=== PATIENT | male | born 1945 | race Caucasian/White ===

== ENCOUNTER 2022-06-19 10:03 | Emergency (ER) | payer MEDICARE ==
[2022-06-19 10:11] VITALS: BP 161/80; PULSE 57; RESP 20; TEMP 97.7
--- NOTE | 2022-06-19 10:36 | XR ---
EXAMINATION TYPE: XR knee complete RT DATE OF EXAM: 06/19/2022 COMPARISON: None HISTORY: Injury, pain, arthritis TECHNIQUE: 3 view right knee FINDINGS: There is narrowed medial compartment joint space. Mild narrowing of the lateral compartment joint space is present. No acute fractures or dislocations are evident. Small joint effusion may be present. Patellofemoral joint space and some narrowing.. Follow up exams can be performed 7-10 days acute trauma for continued pain. MRI could be utilized to evaluate soft tissues. IMPRESSION: 1. Mild osteoarthritic degenerative change right knee. 2. Suggestion of a small joint effusion.
--- NOTE | 2022-06-19 12:28 | US ---
EXAMINATION TYPE: US venous doppler duplex LE RT DATE OF EXAM: 06/19/2022 12:20 PM COMPARISON: NONE CLINICAL HISTORY: posterior knee pain, rule out DVT. "blew out" right knee last night while walking t he dog, no h/o dvt SIDE PERFORMED: Right TECHNIQUE: The lower extremity deep venous system is examined utilizing real time linear array sonog nani with graded compression, doppler sonography and color-flow sonography. 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 Right lower extremity ultrasound negative for deep venous thrombosis. 2. Popliteal complex cyst right posterior fossa
--- NOTE | 2022-06-19 12:42 | ED ---
General Adult HPI - General Chief complaint: Extremity Injury, Lower Stated complaint: rt knee injury Time Seen by Provider: 06/19/22 11:18 Source: patient Mode of arrival: ambulatory Limitations: no limitations - History of Present Illness Initial comments: 77-year-old male who presents for evaluation of knee injury. Patient states he is walking his dog yesterday when he stepped on the curb and twisted his knee and an unknown direction. Patient states he felt pain and shifting in his knee. Did not fall. Reports moderate pain under his kneecap and in the inside of his knee. Also reports some mild pain behind the knee. Did not take anything for pain. States he has crutches and a knee brace at home that he has been using. Denies fever, chills, and other concerns. Denies history of DVT and PE. - Related Data Allergies Allergy/AdvReac Type Severity Reaction Status Date / Time aspirin Allergy Nausea Verified 06/19/22 10:11 Iodinated Contrast Media AdvReac Rash/Hives Verified 06/19/22 10:11 Review of Systems ROS Statement: Those systems with pertinent positive or pertinent negative responses have been documented in the HPI. ROS Other: All systems not noted in ROS Statement are negative. Past Medical History Past Medical History: Hypertension Additional Past Medical History / Comment(s): Arthritis History of Any Multi-Drug Resistant Organisms: None Reported Past Surgical History: Prostate Surgery Past Psychological History: No Psychological Hx Reported Smoking Status: Never smoker Past Alcohol Use History: Occasional Past Drug Use History: None Reported General Exam Limitations: no limitations General appearance: alert, in no apparent distress Head exam: Present: atraumatic, normocephalic, normal inspection Eye exam: Present: normal appearance, PERRL, EOMI. Absent: scleral icterus, conjunctival injection, periorbital swelling Respiratory exam: Present: normal lung sounds bilaterally. Absent: respiratory distress, wheezes, rales, rhonchi, stridor Cardiovascular Exam: Present: regular rate, normal rhythm, normal heart sounds. Absent: systolic murmur, diastolic murmur, rubs, gallop, clicks Left Upper Leg exam: Present: normal inspection, full ROM. Absent: tenderness, swelling Knee exam: Present: full ROM, tenderness (inferior and medial to patella), effusion, pain/laxity with varus (no laxity ), full knee extension. Absent: normal inspection, abrasion, laceration, ecchymosis, deformity, crepitus, dislocation, erythema, posterior draw sign, pain/laxity with valgus Lower Leg exam: Present: normal inspection, full ROM. Absent: tenderness, swelling Neurovascular tendon exam: Present: no vascular compromise. Absent: motor deficit, sensory deficit, extremity cold to touch, pallor, decreased fine/light touch Neurological exam: Present: alert, oriented X3, CN II-XII intact Psychiatric exam: Present: normal affect, normal mood Skin exam: Present: warm, dry, intact, normal color. Absent: rash Course Vital Signs 06/19/22 10:08 Temperature 97.7 F Pulse Rate 57 L Respiratory 20 Rate Blood Pressure 161/80 O2 Sat by Pulse 100 Oximetry Medical Decision Making - Medical Decision Making This is a 69-year-old male who presents for evaluation of right knee injury. Thorough history and examination were performed. There is moderate tenderness inferior and medial to patella with mild effusion. Negative anterior and posterior drawer test. No pain with valgus stress however there is pain with varus stress. No laxity. Neurovascularly intact. Full range of motion. Right knee x-ray is negative for fracture and shows mild osteoarthritis as well as small joint effusion. Results discussed with patient. There is concern for menisci or medial collateral partial tear. Patient referred to orthopedic spe cialist for further evaluation and management. Patient declined knee immobilizer. Has crutches at home. RICE education provided in detail. Dr. Tay is my attending. Disposition Clinical Impression: Knee pain, Knee effusion, right, Knee injury Disposition: HOME SELF-CARE Condition: Good Instructions (If sedation given, give patient instructions): Knee Sprain (ED) Additional Instructions: Use cold compress on the knee for the next 24 hours. Afterwards apply warm compress for symptoms. Rest and elevate the knee as much as possible. Use crutches and wear a knee brace at home until orthopedic evaluation. Follow-up with art therapy specialist in 1-2 days. Take Tylenol for pain. Return to the emergency department if you experience new, concerning, or worsening symptoms. Is patient prescribed a controlled substance at d/c from ED?: No Referrals: Manas Martínez MD [Primary Care Provider] - 1-2 days Latonya Parrish NPC [Nurse Practitioner] - 1-2 days Time of Disposition: 12:42
== END 2022-06-19 12:56 | disposition home or self-care (01) ==
LOC: EC 10:03
DX: S89.91XA Unspecified injury of right lower leg, initial encounter (principal); I10 Essential (primary) hypertension; Z88.6 Allergy status to analgesic agent; Z91.041 Radiographic dye allergy status; W22.8XXA Striking against or struck by other objects, initial encounter
CPT/HCPCS: 99284